=== PATIENT | female | born 1975 | race Caucasian/White ===

== ENCOUNTER → 2018-03-06 | Day surgery (SDC) | payer OTHER, BC ==
--- NOTE | 2018-03-07 13:48 | PATH ---
Cytology Non-Gynecological Report Patient Name: NICKOLAS VALENCIA [facility]. Rec. #: [id number] /Age/Gender: 1975 (Age: 42) / F Account: [id number] Location: RADIOLOGY [facility] [place] Taken: 03/06/2018 Received: 03/06/2018 Reported: 03/07/2018 Physicians: Lisa Larose M.D. Specimen(s) Received LEFT BREAST 6:00 CYST ASPIRATION Clinical History Left breast cyst cluster, 6:00 Final Diagnosis BREAST, LEFT, 6:00, FINE NEEDLE ASPIRATION: SATISFACTORY FOR EVALUATION. NO MALIGNANT CELLS IDENTIFIED. CYSTIC BREAST LESION WITH APOCRINE METAPLASIA. APOCRINE METAPLASTIC CELLS IN A BACKGROUND OF PROTEINACEOUS DEBRIS. CELL BLOCK MATERIAL SHOWS APOCRINE METAPLASTIC CELLS AND FIBROADIPOSE TISSUE. Electronically Signed Riri Person M.D. Gross Description Approximately 30 cc of clear fluid received fixed in 50% alcohol. Two cytofunnels prepared and Pap stained. One cellblock prepared.
== END | disposition home or self-care (01) ==
LOC: JRADUS-SUR 07:51
PROVIDERS: ATTEND Family Medicine
PROC: 0H9U3ZX Drainage of Left Breast, Percutaneous Approach, Diagnostic (ICD-10-PCS; principal; 2018-03-06)
DX: N60.02 Solitary cyst of left breast (principal)
CPT/HCPCS: 76942-TC; 87899; 88173